=== PATIENT | male | born 1965 | race Caucasian/White ===

== ENCOUNTER 2017-11-06 09:20 | Observation (INO) | payer OTHER ==
[~2017-11-06] VITALS: Ht 193 cm; Wt 106.9 kg
--- NOTE | ~2017-11-06 | D ---
[facility] [place] [address] DISCHARGE SUMMARY Name: CHELSEA ROBLERO Room #: 210-P [facility] Cristian Lee#: [id number] Admission: 11/06/17 Attend Phys: Bong Chow Discharge: 11/07/17 Date of : 63 Report #: [id number] THIS REPORT FOR: //name// CC: Bong Parker DATE OF SERVICE: 11/07/2017 ADMITTING DIAGNOSIS: Unstable angina. DISCHARGE DIAGNOSES: 1. Coronary artery disease. 2. Dyslipidemia. 3. Hypertension. PROCEDURE PERFORMED: 1. Left heart catheterization. 2. Percutaneous transluminal coronary angioplasty and stenting with a 2.5 mm Resolute HARMAN stent to the proximal right coronary artery, taken to 16 atmospheres and 4.18 mm diameter. 3. Supervision of conscious sedation. Follow up with Dr. Bong Chow in 1 month. DISCHARGE MEDICATIONS: 1. Home meds. 2. Prasugrel 10 mg daily, prescription given (if too expensive, prescription for 75 mg of Plavix was given also). DISCHARGE DIET: [place] [employer] step 1 diet. HISTORY AND PHYSICAL: See history and physical in chart. HOSPITAL COURSE: The patient was admitted to the hospital and underwent cardiac catheterization, demonstrated a small first marginal branch of approximately 2-2.25 mm diameter that had a 90% lesion. There was also a significant lesion in the right coronary artery that was greater than 90% with a thrombus in place. He underwent uncomplicated percutaneous revascularization which immediately removed his symptoms of chest discomfort post-procedure. He was allowed to ambulate without any recurrent symptomatology. The patient states he feels much [facility] [address] [place] [address] DISCHARGE SUMMARY Name: CHELSEA ROBLERO Room #: 210-P [facility] Cristian Lee#: [id number] Admission: 11/06/17 Attend Phys: Bong Chow Discharge: 11/07/17 Date of : 63 Report #: [id number] improved, is being discharged in stable and improved condition with the previously-stated discharge instructions and medications. <ELECTRONICALLY SIGNED> By: Bong Chow MD 11/07/17 1903 1217 1725 Bong Chow MD /nt
--- NOTE | ~2017-11-06 | CATHLAB ---
[facility] [address] [place] [address] INVASIVE PROCEDURE REPORT Name: ANNIKACHELSEA CHUN Room #: 210-P ADM IN .R.#: [id number] Admission: 11/06/17 Attend Phys: Bong Alfonso Discharge: Date of : 63 Date of Service: 11/06/17 1657 Report #: [id number] THIS REPORT FOR: //name// APPROVED REPORT Patient Details Patient Status: Out-Patient Room #: The patient is a 52 year-old male Event Personnel Bong Chow Director Product Development, Shannon Gallegos Monitor, Dyasi Holland Penny, Wes RN Procedures Performed Art Access - R femoral artery* 14991 Initial Mod Sed Same Phys/QHP Gr5y 345208 74422 Mod Sed Same Phys/QHP Ea 939231 Left Heart Cath w/or w/o Coronaries [id number] [facility] Place w/wo Plasty Single RCA 383074 Hemostasis with Manual pressure supervision of conscious sedation Indication Positive stress test, Chest pain Procedure Narrative The patient was brought electively to the Cardiac Catheterization Laboratory and was prepped and draped in a sterile manner. The Right Groin^ was infiltrated with 1% Lidocaine subcutaneous anesthesia. A PINNACLE 4FR Sheath #[id number] sheath was inserted into the RFA^. Coronary angiography was performed using coronary diagnostic catheters. The right coronary system was accessed and visualized with a JR 4 catheter. The left coronary system was accessed and visualized with a JL 4 catheter. The left ventricle was accessed and visualized with a Pigtail catheter. Left ventricular/Aortic Valve gradient assessed via catheter pullback. The patient tolerated the procedure well and there were no complications associated with the procedure. There was no hematoma. Intraoperative Conscious Sedation Sedation start time: 11:19 Case end Time: 12:05 Versed 2.0 mg Fluoro Time: 9.20 minutes Dose: DAP 49817.70 cGycm2 1906 mGy Contrast Type and Amount: Omnipaque 135 ml [facility] [address] [place] [address] INVASIVE PROCEDURE REPORT Name: CHELSEA ROBLERO Room #: 210-P [facility] IN ..#: [id number] Admission: 11/06/17 Attend Phys: Bong Alfonso Discharge: Date of : 63 Date of Service: 11/06/17 1657 Report #: [id number] Coronary Angiography The patient's coronary anatomy is right dominant. Diagnostic Cath Left Main Large-caliber vessel of normal origin bifurcates left anterior descending left circumflex free of high-grade disease. LAD On to large caliber vessel which tapers towards the apex is a type III vessel. It has luminal irregularities but no high-grade obstructive lesions noted. It gives rise to septal and diagonal branches in its course Diagonal 1 Moderate caliber vessel coursing along the anterolateral wall. There is irregularities noted in its course but no evidence of significant high-grade lesions. Circumflex Moderate to large caliber vessel which courses in the AV groove posteriorly. It then bifurcates to much smaller vessels consisting of the first marginal branch the circumflex then continues posteriorly to his as a small terminal branch and the posterior aspect of the heart OM1 approximately 2-2.5 mm in diameter. It is subtotally occluded proximally and beyond the lesion it trifurcates into 3 branches one of which is quite small and has a 95% lesion proximally the other is of moderate size without significant high-grade lesions only luminal irregularities as it courses along the lateral aspect of the heart Right Coronary Large-caliber vessel of normal origin. In its proximal third there is a high-grade 90-95% lesion with thrombus present. SWEETIE flow appears to be 2 vessel then continues on giving rise to 2 small RV marginal branches and posteriorly a posterior descending artery which is early bifurcating and moderate in size. The mid RCA has luminal irregularities of less than 50%. Continues on his posterior circulation is a small-caliber posterolateral branch free of high-grade disease R PDA Moderate caliber vessel which has an early branch free of high-grade disease. Then continues on in the posterior interventricular sulcus towards the apex without significant high-grade lesions Left Ventriculography Left Ventriculography was not performed. Hemodynamics The aortic pressure is 101/70 mmHg with a mean of 86 mmHg. The left ventricular pressure is 125/9 mmHg with a mean of mmHg. The left ventricular end diastolic pressure is 26 mmHg. [facility] [address] [place] [address] INVASIVE PROCEDURE REPORT Name: CHELSEA ROBLERO Room #: 210-P ADM IN M.R.#: [id number] Admission: 11/06/17 Attend Phys: Joey. Lammo Discharge: Date of : 63 Date of Service: 11/06/17 1657 Report #: [id number] PCI Technique The 4 [place] sheath was then upsized to 6 Icelandic sheath and a standard right JR4 guide was then advanced under fluoroscopic realization engaging the coronary ostium. Cineangiography were obtained as guiding shots. Does inhale 14 wire this was advanced across the lesion which was somewhat difficult. This point time was felt that the tightness of the lesion would preclude the thrombus extraction device and therefore direct angioplasty was ensued. A 5 mm balloon was then positioned across the lesion and dilated to 2.5 mm up. Subsequent to this a ES stent was taken to 4 mm and positioned up. Flow through the vessel was satisfactory there appeared to be some wire spasm. A noncompliant 40 balloon was then taken to 16 tino to 4.2 mm in the proximal portion of the stent to taper outwards. IC nicardipine was utilized with increased flow to SWEETIE-3 subsequent to the effusions. White spasm did not improve dramatically and IC nitroglycerin was given which improved the spasm. Subsequently this the wire was removed and final pictures were obtained and oblique and angulated physician. There is no loss of side branch distal embolization or embolization of the previously present thrombus. The entire procedure whether or complications PCI Technique Lesion Anticoagulation was achieved with Angiomax. Percutaneous coronary intervention was performed on the proximal right coronary artery. A LAUNCHER 6FR JR 4 #[id number] Guide Catheter was used to engage the ostium. A Luge Wire (J) .014 X 182CM #[id number] Interventional Guidewire was used to cross the lesion. BALLOON DILATION A Balloon catheter Sprinter OTW 3.5 x 20 #[id number] was inserted and inflated up to 10.00atm for 19seconds. STENT DEPLOYMENT A drug-eluting stent RESOLUTE OTW 3.5 X 18 #[id number] was inserted and inflated up to 9.00atm for 14seconds. Additional Inflation: 14.00atm for 10seconds. Additional Inflation: 18.00atm for 8seconds. POST STENT DEPLOYMENT BALLOON DILATION A Balloon catheter Mozec NC 4.0 x 8 was inserted and inflated up to 10.00atm for 12seconds. Additional Inflation: 14.00atm for 9seconds. Additional Inflation: 16.00atm for 10seconds. Conclusion 1. Coronary disease severe 2 vessel involving the first marginal branch of the circumflex and the proximal right coronary artery [facility] [email or web address] [address] INVASIVE PROCEDURE REPORT Name: CHELSEA ROBLERO Room #: 210-P [facility] IN M.R.#: [id number] Admission: 11/06/17 Attend Phys: Bong Alfonso Discharge: Date of : 63 Date of Service: 11/06/171656 Report #: [id number] 2. Successful percutaneous revascularization of a proximal RCA lesion with a 3.5 mm resolute stents dilated to 4.2 with a noncompliant balloon 3. Normal hemodynamics Recommendations Cardiac Risk Reduction Program Aggressive Medical Therapy Consideration of a staged angioplasty to the left circumflex marginal branch Medications Administered Prasugrel <ELECTRONICALLY SIGNED> By: Bong Chow MD 11/06/171656 56 1657 Bong Chow MD /INF
[2017-11-06 09:46] VITALS: BP 118/78
[2017-11-06] MEDS ORDERED: VITAMIN D1000 UNI1 PO (10:00)
[2017-11-06] MEDS ORDERED: ASPIR 8181 M1 PO (10:00)
[2017-11-06] MEDS ORDERED: BYSTOLIC 5 MG5 M1 PO (10:01)
[2017-11-06] MEDS ORDERED: IMDUR 60 MG TAB60 M1 PO (10:01)
[2017-11-06] MEDS ORDERED: SIMVASTATIN40 MG PO (10:02)
[2017-11-06] MEDS ORDERED: NITROGLYCERIN0.3 M1 PO (10:02)
[2017-11-06 10:22] LABS: HEMATOCRIT 48.9 % (42.0-52.0); HEMOGLOBIN 17.1 gm/dL (14.0-18.0); MCH 33.1 pg (26.0-34.0); MCV 94.6 fL (80.0-100.0); RBC 5.17 mil/uL (4.50-6.00); RDW 12.9 % (10.5-14.5); WBC 9.2 thou/uL (4.0-11.0)
[2017-11-06 10:35] LABS: CALCIUM 9.5 mg/dL (8.5-10.1); POTASSIUM 4.3 mmol/L (3.5-5.1)
[2017-11-06 20:02] VITALS: BP 107/72
[2017-11-06 23:58] VITALS: BP 88/60
[2017-11-07 04:30] VITALS: BP 102/69
[2017-11-07 05:23] LABS: HEMATOCRIT 44.7 % (42.0-52.0); HEMOGLOBIN 15.4 gm/dL (14.0-18.0); MCH 32.8 pg (26.0-34.0); MCHC 34.5 g/dL (28.0-37.0); RBC 4.7 mil/uL (4.50-6.00); RDW 13.3 % (10.5-14.5); WBC 8.7 thou/uL (4.0-11.0)
[2017-11-07 05:28] LABS: CALCIUM 8.5 mg/dL (8.5-10.1); CREATININE 0.9 mg/dL (0.7-1.3)
[2017-11-07 07:54] VITALS: BP 124/82
[2017-11-07 11:09] VITALS: BP 130/80
[2017-11-07] MEDS ORDERED: NITROGLYCERIN0.4 MG SUBLING (12:10)
[2017-11-07] MEDS ORDERED: EFFIENT10 MG PO (12:12)
[2017-11-07 12:42] VITALS: BP 130/80
== END 2017-11-07 13:00 | disposition home or self-care (01) ==
LOC: CATH 09:20 → 2N 15:21
PROVIDERS: Internal Medicine
DX: I25.110 Atherosclerotic heart disease of native coronary artery with unstable angina pectoris (principal); E78.5 Hyperlipidemia, unspecified; I10 Essential (primary) hypertension; Z79.899 Other long term (current) drug therapy; Z79.82 Long term (current) use of aspirin

== ENCOUNTER → 2020-02-29 | Outpatient (CLI) | payer BC ==
[~2020-02-29] MED LIST: ASPIR 8181 M1 PO; BYSTOLIC 5 MG5 M1 PO; EFFIENT10 MG PO; IMDUR 60 MG TAB60 M1 PO; NITROGLYCERIN0.3 M1 PO; NITROGLYCERIN0.4 MG SUBLING; SIMVASTATIN40 MG PO; VITAMIN D1000 UNI1 PO
== END ==
LOC: SJCVCIMAG 07:41
DX: I25.10 Atherosclerotic heart disease of native coronary artery without angina pectoris (principal); E78.5 Hyperlipidemia, unspecified; F17.210 Nicotine dependence, cigarettes, uncomplicated; Z87.898 Personal history of other specified conditions